=== PATIENT | female | born 1995 | race Caucasian/White ===

== ENCOUNTER 2019-06-21 18:31 | Emergency (ER) | payer OTHER ==
[~2019-06-21] VITALS: Ht 167.6 cm; Wt 87.1 kg
== END 2019-06-21 21:04 | disposition home or self-care (01) ==
LOC: ER 18:31
DX: K52.9 Noninfective gastroenteritis and colitis, unspecified (principal)

== ENCOUNTER → 2019-10-10 | Outpatient (CLI) | payer OTHER | END | disposition home or self-care (01) | LOC: PRENATAL 09:31 | DX: O35.3XX0 Maternal care for (suspected) damage to fetus from viral disease in mother, not applicable or unspecified (principal) ==

== ENCOUNTER 2019-12-23 01:23 | Outpatient (CLI) | payer OTHER ==
[2019-12-23] MEDS ORDERED: IRON 100 PLUS1 EACH PO (01:42)
[2019-12-23] MEDS ORDERED: VITAMIN C100 MG PO (01:43)
== END 2019-12-23 17:56 | disposition home or self-care (01) ==
LOC: OBS/DEL 01:23
DX: O26.893 Other specified pregnancy related conditions, third trimester (principal); E86.0 Dehydration

== ENCOUNTER 2020-01-20 08:04 | Inpatient (IN) | payer OTHER ==
[~2020-01-20] VITALS: Ht 167.6 cm; Wt 88.0 kg
[~2020-01-20 08:04] MED LIST: IRON 100 PLUS1 EACH PO; VITAMIN C100 MG PO
== END 2020-01-22 17:26 | disposition home or self-care (01) | DRG 807 ==
LOC: OBS/DEL 08:04 → LDR 11:42 → OB/GYN 11:42
PROVIDERS: ADMIT Obstetrics & Gynecology; ATTEND Obstetrics & Gynecology
PROC: 10E0XZZ Delivery of Products of Conception, External Approach (ICD-10-PCS; principal; 2020-01-20)
PROC: 4A1HXFZ Monitoring of Products of Conception, Cardiac Rhythm, External Approach (ICD-10-PCS; 2020-01-20)
DX: O80 Encounter for full-term uncomplicated delivery (principal); Z37.0 Single live birth; Z3A.39 39 weeks gestation of pregnancy